=== PATIENT | male | born 1980 | race Caucasian/White ===

== ENCOUNTER 2016-07-28 22:02 | Emergency (ER) | payer SELFPAY ==
[2016-07-28] MEDS ORDERED: BUDESONIDE 0.5MG/2ML AMPUL.NEB NEB ONE (22:15)
[2016-07-28] MEDS ORDERED: IPRATROPIUM/ALBUTEROL SULFATE 3 ML AMPUL.NEB NEB ONE (22:15)
[2016-07-28 22:37] LABS: BASOPHILS % 0.2 (0.0-1.5); EOSINOPHILS % 2.6 % (0.0-6.8); LYMPHOCYTES # 2.2 # k/uL (0.6-4.0); MEAN CORPUSCULAR HEMOGLOBIN 31.3 pg (28.0-34.0); MONOCYTES # 0.4 # k/uL (0.0-0.9); MONOCYTES % 5.5 % (0.0-11.0); NEUTROPHILS # 4.8 # k/uL (1.4-7.7)
[2016-07-28 22:53] LABS: eGFR (African) > 60; eGFR (Non-African) > 60
[2016-07-29] MEDS ORDERED: 0.9 % SODIUM CHLORIDE 1,000 ML IV ONE (00:10)
[2016-07-29] MEDS ORDERED: FLUMAZENIL 0.1 MG/ML 5ML VIAL IV ONE (01:28)
[2016-07-29] MEDS ORDERED: NALOXONE HCL 0.4 MG/ML AMP IVP ONE (01:30)
--- NOTE | 2016-07-29 01:44 | ED Physician Documentation ---
General Adult - HISTORIAN Historian: patient - HPI Stated Complaint: medical clearance Chief Complaint: General Adult Additional Information: pt. noted to have taken multiple medications, possibly heroin and definitely 1 mg Xanax x 5. Pt. here to determine fitness for confinement. 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) Timing: still present Modifying Factors: seen taking illicit substances, no script for Xanax that can be verified Location: local convenience store Further Comments: no - ROS CONST: no problems EYES/ENT: none CVS/RESP: other (copd with wheeze) GI/: none MS/SKIN/LYMPH: none NEURO/PSYCH: difficulty with speech (increased slurring of words ended by romzicon and narcan) - PAST HX Past History: COPD Other History: other (anxiety) Surgeries/Procedures: none Immunizations: referred to PCP Allergies/Adverse Reactions: Allergies Allergy/AdvReac Type Severity Reaction Status Date / Time No Known Allergies Allergy Verified 07/28/16 22:13 Home Medications: Ambulatory Orders Medication Instructions Recorded Albuterol Sulfate [Ventolin] 2.5 mg NEB Q4 07/28/16 Alprazolam [Xanax] 1 mg PO QID 07/28/16 Lamotrigine [Lamictal] 25 mg PO 07/28/16 - SOCIAL HX Smoking History: cigarettes Alcohol Use: none Drug Use: marijuana, methamphetamines, other (opiates) - FAMILY HX Family History: No - VITAL SIGNS Vital Signs: Vital Signs Temp Pulse Resp BP Pulse Ox 98 F 103 H 16 106/82 97 07/28/16 22:10 07/28/16 22:10 07/28/16 22:10 07/28/16 22:10 07/28/16 22:10 - REVIEWED ASSESSMENTS Nursing Assessment Reviewed: Yes Vitals Reviewed: Yes Progress - Results/Orders Results/Orders: cbc, cmp, ua, uds, etoh ordered - Progress Progress: pt. givdn 1 liter NS, 0.5 mg Romazicon and 0.4 mg Narcan ivp in er with complete resolution of decreased alertness Critical Care Note - Critical Care Note Total Time (mins): 0 ED Results Lab/Radiology - Lab Results Lab Results: Lab Results 07/28/16 07/28/16 22:30 22:11 WBC 7.80 K/ul K/ul (4.00-12.00) RBC 4.95 M/ul M/ul (3.90-5.20) Hgb 15.5 g/dL g/dL (12.0-18.0) Hct 47.0 % % (37.0-53.0) MCV 95.0 fl fl (80.0-100.0) MCH 31.3 pg pg (28.0-34.0) MCHC 32.9 g/dL g/dL (30.0-36.0) RDW 13.2 % % (11.3-14.3) Plt Count 188 K/mm3 K/mm3 (130-400) Neut % (Auto) 62.1 % % (39.0-79.0) Lymph % (Auto) 28.2 % % (16.0-50.0) [place] % (Auto) 5.5 % % (0.0-11.0) Eos % (Auto) 2.6 % % (0.0-6.8) Baso % (Auto) 0.2 (0.0-1.5) Neut # 4.8 # k/uL # k/uL (1.4-7.7) Lymph # 2.2 # k/uL # k/uL (0.6-4.0) [place] # 0.4 # k/uL # k/uL (0.0-0.9) Eos # 0.2 # k/uL # k/uL (0.0-0.6) Baso # 0.0 # k/uL # k/uL (0.0-0.5) Reactive Lymphs % 1.4 % % (0.0-5.0) Reactive Lymphs # 0.1 # k/uL # k/uL (0.0-0.8) Sodium 142 mmol/L mmol/L (136-145) Potassium 3.6 mmol/L mmol/L (3.5-5.0) Chloride 108 mmol/L mmol/L (98-110) Carbon Dioxide 28 mmol/L mmol/L (20-32) BUN 6 mg/dL L mg/dL (10-26) Creatinine 1.0 mg/dL mg/dL (0.4-1.5) Estimated Creat Clear 85 Est GFR ( Amer) > 60 (60 - ) Est GFR (Non-Af Amer) > 60 (60 - ) Glucose 159 mg/dL H mg/dL (70-99) Calcium 10.5 mg/dL mg/dL (8.5-10.5) Total Bilirubin 2.7 mg/dL H mg/dL (0.2-1.2) AST 19 U/L U/L (0-41) ALT 16 U/L U/L (0-45) Alkaline Phosphatase 92 U/L U/L (46-116) Total Protein 7.6 g/dL g/dL (6.0-8.5) Albumin 4.9 g/dL g/dL (3.0-5.5) Ethyl Alcohol 2.1 MG/DL MG/DL (<10.0) - Radiology Radiology Impressions: cxr clear - Orders Orders: ED Orders Category Date Time Status Place Saline Lock/IV Now Care 07/29/16 01:34 Ordered CHEST 1 VIEW [RAD] Routine Exams 07/28/16 Taken CBC/PLATELET/DIFF Routine Lab 07/28/16 22:11 Completed CMP Routine Lab 07/28/16 22:30 Completed DRUG SCREEN URINE MEDICAL ONLY Routine Lab 07/28/16 Ordered ETHANOL MEDICAL USE ONLY Routine Lab 07/28/16 22:30 Completed URINALYSIS Routine Lab 07/28/16 22:11 Ordered 0.9 % Sodium Chloride [Normal Saline] 1,000 ml Med 07/29/16 00:10 Discontinued IV .STK-MED Budesonide [Pulmicort] Med 07/28/16 22:15 Discontinued 0.5 mg NEB 1T ONE Flumazenil [Romazicon] Med 07/29/16 01:28 Once 0.5 mg IV NOW ONE Ipratropium/Albuterol Sulfate [Duoneb] Med 07/28/16 22:15 Discontinued 3 ml NEB NOW ONE NORMAL SALINE @ 1000 MLS/HR ( 1000ml) (BOLUS) Med 07/29/16 02:00 Ordered 0.9 % Sodium Chloride [Normal Saline] 1,000 ml IV .Q1H Naloxone HCl [Narcan] Med 07/29/16 01:30 Once 0.4 mg IVP NOW ONE General Adult Physical Exam - PHYSICAL EXAM GENERAL APPEARANCE: no distress (on admission very clear in speech and movement , by just gefore romazicon and narcan pt. more slurred in speech, stumbling) EENT: ENT inspection normal, pharynx normal, JEN (pinpoint), no nystagmus, TM' s nml NECK: normal inspection, thyroid normal, supple RESPIRATORY: no resp distress, wheezes CVS: reg rate & rhythm, heart sounds normal, equal pulses, no murmur, no gallop , PMI nml ABDOMEN: soft, no organomegaly, normal bowel sounds, no abdominal bruit, no distension, non-tender BACK: normal inspection, no CVA tenderness SKIN: warm/dry, normal color EXTREMITIES: non-tender, normal range of motion, no evidence of injury, no edema NEURO: oriented X3, CN's nml as tested, motor nml, sensation nml Discharge Clincal Impression: Narcotic abuse Home Medications: Ambulatory Orders Albuterol Sulfate [Ventolin] 2.5 mg NEB Q4 07/28/16 Alprazolam [Xanax] 1 mg PO QID 07/28/16 Lamotrigine [Lamictal] 25 mg PO 07/28/16 Comments: released to law officials taking him to half-way Condition: Stable Decision to Admit: NO Decision Time: 01:30
[2016-07-29] MEDS ORDERED: 0.9 % SODIUM CHLORIDE 1,000 ML IV SCH (02:00)
[2016-07-29 02:08] VITALS: BP 125/86
[2016-07-29 06:45] LABS: APPEARANCE,URINE CLEAR (CLEAR); COLOR,URINE AMBER (YELLOW); OCCULT BLOOD,URINE NEGATIVE (NEGATIVE); UROBILINOGEN URINE >=8.0 Eu (0.2-1.0)
[2016-07-29 06:48] LABS: AMPHETAMINE NON NEGATIVE ng/mL (<1000); BARBITURATES NEGATIVE ng/mL (<300); CANNABINOIDS NON NEGATIVE ng/mL (<50); COCAINE NEGATIVE ng/mL (<150); METHAMPHETAMINE NON NEGATIVE ng/mL (<1000); METHYLENEDIOXYMETHAMPHETAMINE NON NEGATIVE ng/mL (<500)
--- NOTE | 2016-07-29 06:51 | Diagnostic Imaging Report ---
GENA GÓMEZ~ [facility] [address] [facility].[address] [address] ~ ~ ~ ~ Report Submission Date: Jul 28, 2016 11:05:58 PM BLURB WRITER Patient ~ Study Name: JANET FISHMAN ~ Date: Jul 28, 2016 10:48:12 PM BLURB WRITER ~ Modality Type: CR Gender: M ~ Description: CHEST : 80 ~ Institution: [facility] Physician: GEAN GÓMEZ ~ ~ ~ ~ Chest -one view CLINICAL HISTORY: ~ Difficulty breathing for 2 hr. FINDINGS: ~ Examination the chest single portable AP view 07/28/2016 2248 hr with no prior film for comparison demonstrates the lungs to be clear. ~Cardiovascular and mediastinal silhouettes are within normal limits. ~Bony thorax is intact. IMPRESSION: ~ No active disease. ~ Electronically signed on Jul 28, 2016 11:05:58 PM BLURB WRITER by: Eddie MASON
== END 2016-07-29 01:45 ==
LOC: ED 22:02
DX: F11.221 Opioid dependence with intoxication delirium (principal)
CPT/HCPCS: 71010; 80053; 80320; 80377; 81002; 85025; J7030; J7626; 96361; 96374; 96375; 99283; 99284; J2310; J3490; G0480; G0481; S1016

== ENCOUNTER 2016-08-10 12:06 | Emergency (ER) | payer SELFPAY ==
--- NOTE | 2016-08-10 12:45 | ED Physician Documentation ---
General Adult - HISTORIAN Historian: patient - HPI Stated Complaint: Hyperventilation Chief Complaint: General Adult Onset: minutes Timing: still present Further Comments: yes (35 year old male patient brought in from correction with hyperventilation. Mask placed on patient on arrival, refusing to cooperate on arrival.) - ROS CONST: no problems EYES/ENT: none CVS/RESP: none GI/: none MS/SKIN/LYMPH: none - PAST HX Past History: other (anxiety) Allergies/Adverse Reactions: Allergies Allergy/AdvReac Type Severity Reaction Status Date / Time No Known Allergies Allergy Verified 08/10/16 12:16 Home Medications: Ambulatory Orders Medication Instructions Recorded Albuterol Sulfate [Ventolin] 2.5 mg NEB Q4 07/28/16 Alprazolam [Xanax] 1 mg PO QID 07/28/16 Lamotrigine [Lamictal] 25 mg PO 07/28/16 - SOCIAL HX Smoking History: cigarettes - FAMILY HX Family History: No - VITAL SIGNS Vital Signs: Vital Signs Temp Pulse Resp BP Pulse Ox 97.8 F 113 H 40 H 126/82 100 08/10/16 12:10 08/10/16 12:10 08/10/16 12:10 08/10/16 12:10 08/10/16 12:10 - REVIEWED ASSESSMENTS Nursing Assessment Reviewed: Yes Vitals Reviewed: Yes Progress - Progress Progress: RR 30 on arrival, Sat 99-100% Reassured patient, correction staff at bedside. Patient resting quietly on stretcher. USD: + benzo's, patient on librium BID VS stable at discharge. General Adult Physical Exam - PHYSICAL EXAM GENERAL APPEARANCE: no distress EENT: eye inspection normal, ENT inspection normal, pharynx normal, no signs of dehydration, JEN, no nystagmus, TM's nml RESPIRATORY: no resp distress, chest non-tender, breath sounds normal CVS: reg rate & rhythm, heart sounds normal, equal pulses, no murmur, no gallop , PMI nml, no JVD, no friction rub, 24 ABDOMEN: soft, no organomegaly, normal bowel sounds, no abdominal bruit, no distension SKIN: normal color, warm/dry, NR, INT, PAL, DR EXTREMITIES: non-tender, normal range of motion, no evidence of injury, no edema , J, 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
[2016-08-10 13:14] VITALS: BP 105/69
[2016-08-10 17:46] LABS: AMPHETAMINE NEGATIVE ng/mL (<1000); BARBITURATES NEGATIVE ng/mL (<300); CANNABINOIDS NEGATIVE ng/mL (<50); COCAINE NEGATIVE ng/mL (<150); METHAMPHETAMINE NEGATIVE ng/mL (<1000); METHYLENEDIOXYMETHAMPHETAMINE NEGATIVE ng/mL (<500)
[2016-08-11 05:58] LABS: APPEARANCE,URINE CLEAR (CLEAR); COLOR,URINE YELLOW (YELLOW); OCCULT BLOOD,URINE NEGATIVE (NEGATIVE); UROBILINOGEN URINE 0.2 Eu (0.2-1.0)
== END 2016-08-10 13:00 | disposition home or self-care (01) ==
LOC: ED 12:06
DX: R06.4 Hyperventilation (principal)
CPT/HCPCS: 51701; 80377; 81002; 99283; G0481